=== PATIENT | male | born 1995 | race Caucasian/White ===

== ENCOUNTER 2020-02-08 10:32 | Emergency (ER) | payer SELFPAY ==
[2020-02-08] MEDS ORDERED: Sodium Chloride 0.9% 1000 ML 1,000 ML IV STA (10:56)
[2020-02-08] MEDS ORDERED: MORPHINE SULFATE 4 MG INJ IV ONE (10:56)
[2020-02-08] MEDS ORDERED: Zofran 4 MG/2 ML VIAL IV ONE (10:56)
--- NOTE | 2020-02-08 10:58 | ERPHSYRPT ---
- History of Present Illness Time Seen by Provider: 02/08/20 10:50 Historian: patient Exam Limitations: no limitations Patient Subjective Stated Complaint: Pt states "I have been fightsing something for the past 1 month, but two days ago I started to vomit and I have this knot in my abdomen and I have some severe abdominal pain as well." Triage Nursing Assessment: Pt presented alert and oriented AX 3, skin pwd PT ambulates with an upright steady gait, able to speak in clear full sentences tp in no apparent respiratory distress. pt anxious and holding abdomen. Physician History: 24 years old male presented in the ER with chief complaint of periumbilical/ upper abdominal pain. Patient report this is going off and on for almost 1 month but for the last couple of days is progressively worsening associated with multiple episodes of nonprojectile, nonbilious vomiting and no hematemesis. Patient reports it feels as if he is having a stabbing knife especially with vomiting. No fever or chills reported. No diarrhea. Denies any sick contact. Timing/Duration: day(s) (2), intermittent, worse Activities at Onset: rest Quality: sharpness, stabbing Abdominal Pain Onset Location: epigastric, periumbilical Pain Radiation: no radiation Severity of Pain-Max: severe Severity of Pain-Current: severe Modifying Factors: Improves With: movement, vomiting Associated Symptoms: fatigue, loss of appetite, nausea, No fever/chills Previous symptoms: no prior history Allergies/Adverse Reactions: No Known Drug Allergies Allergy (Verified 02/08/20 10:42) Hx Tetanus, Diphtheria Vaccination/Date Given: Yes Hx Influenza Vaccination/Date Given: No Hx Pneumococcal Vaccination/Date Given: No Immunizations Up to Date: Yes Travel Risk - International Travel Have you traveled outside of the country in past 3 weeks: No - Coronavirus Screening Are you exhibiting any of the following symptoms?: Yes Symptoms: Vomiting/Diarrhea Close contact with a COVID-19 positive Pt in past 14-21 Days: No - Review of Systems Constitutional: No Symptoms Eyes: No Symptoms Ears, Nose, & Throat: No Symptoms Respiratory: No Symptoms Cardiac: No Symptoms Abdominal/Gastrointestinal: Abdominal Pain, Nausea, Vomiting Genitourinary Symptoms: No Symptoms Musculoskeletal: No Symptoms Skin: No Symptoms Neurological: No Symptoms Psychological: No Symptoms Endocrine: No Symptoms Hematologic/Lymphatic: No Symptoms Immunological/Allergic: No Symptoms - Past Medical History Pertinent Past Medical History: Yes Neurological History: No Pertinent History ENT History: No Pertinent History Cardiac History: No Pertinent History Respiratory History: No Pertinent History Endocrine Medical History: No Pertinent History Musculoskeletal History: No Pertinent History GI Medical History: No Pertinent History History: No Pertinent History Psycho-Social History: No Pertinent History Male Reproductive Disorders: No Pertinent History - Past Surgical History Past Surgical History: Yes Neuro Surgical History: No Pertinent History Cardiac: No Pertinent History Respiratory: No Pertinent History Gastrointestinal: No Pertinent History Genitourinary: No Pertinent History Musculoskeletal: Other Male Surgical History: No Pertinent History Other Surgical History: RIGHT ARM LEFT ANKLE SURGERY - Social History Smoking Status: Current some day smoker How long have you smoked: years Exposure to second hand smoke: Yes Drug Use: narcotics, other Patient Lives Alone: No - Nursing Vital Signs Nursing Vital Signs: Initial Vital Signs Temperature 98.5 F 02/08/20 10:37 Pulse Rate 88 02/08/20 10:37 Respiratory Rate 22 02/08/20 10:37 Blood Pressure 123/66 02/08/20 10:37 O2 Sat by Pulse Oximetry 100 02/08/20 10:37 Pain Scale Pain Intensity 2 - Physical Exam General Appearance: no apparent distress, alert, anxiety Eye Exam: eyes nml inspection Ears, Nose, Throat Exam: normal ENT inspection, pharynx normal Neck Exam: normal inspection, supple, full range of motion Respiratory Exam: normal breath sounds, lungs clear Cardiovascular Exam: regular rate/rhythm, normal heart sounds Gastrointestinal/Abdomen Exam: tenderness, guarding (Periumbilical area), No rebound Back Exam: normal inspection Extremity Exam: normal inspection Neurologic Exam: alert, oriented x 3, cooperative Skin Exam: normal color SpO2 Interpretation: normal SpO2: 100 O2 Delivery: Room Air - Course Nursing assessment & vital signs reviewed: Yes Ordered Tests: Active Orders 24 hr Category Date Time Status IV Insertion STAT Care 02/08/20 10:56 Active NPO (ED) STAT Care 02/08/20 10:56 Active ABDOMEN AND PELVIS W CONTRAST [CT] Stat Exams 02/08/20 10:56 Completed CBC W DIFF Stat Lab 02/08/20 10:45 Completed CMP Stat Lab 02/08/20 10:45 Completed LIPASE Stat Lab 02/08/20 10:45 Completed UA W/RFX UR CULTURE Stat Lab 02/08/20 12:00 Completed Medication Summary Generic Name Dose Route Start Last Admin Trade Name Kamini PRN Reason Stop Dose Admin Pantoprazole Sodium 40 mg 02/08/20 13:31 Protonix 40 Mg Iv IV 02/08/20 13:32 STAT ONE Discontinued Medications Generic Name Dose Route Start Last Admin Trade Name Kamini PRN Reason Stop Dose Admin Sodium Chloride 1,000 mls @ 999 mls/hr 02/08/20 10:56 02/08/20 12:29 Sodium Chloride 0.9% 1000 Ml IV 02/08/20 11:56 Infused .Q1H1M STA Infusion Sodium Chloride Confirm 02/08/20 11:00 Sodium Chloride 0.9% 1000 Ml Administered 02/08/20 11:01 Dose 1,000 mls @ ud .ROUTE .STK-MED ONE Morphine Sulfate 4 mg 02/08/20 10:56 02/08/20 11:03 Morphine Sulfate 4 Mg Inj IV 02/08/20 10:57 4 mg STAT ONE Administration Morphine Sulfate Confirm 02/08/20 11:00 Morphine Sulfate 4 Mg Inj Administered 02/08/20 11:01 Dose 4 mg .ROUTE .STK-MED ONE Ondansetron HCl 4 mg 02/08/20 10:56 02/08/20 11:02 Zofran 4 Mg/2 Ml Vial IV 02/08/20 10:57 4 mg STAT ONE Administration Ondansetron HCl Confirm 02/08/20 10:59 Zofran 4 Mg/2 Ml Vial Administered 02/08/20 11:00 Dose 4 mg .ROUTE .STK-MED ONE Lab/Rad Data: Laboratory Result Diagrams 02/08/20 10:45 02/08/20 10:45 Laboratory Results 02/08/20 02/08/20 02/08/20 Range/Units 12:00 10:45 10:45 WBC 10.3 (4.0-10.5) K/mm3 RBC 4.76 (4.1-5.6) M/mm3 Hgb 15.0 (12.5-18.0) gm/dl Hct 44.6 (42-50) % MCV 93.7 (78-100) fl MCH 31.5 (26-32) pg MCHC 33.6 (32-36) g/dl RDW 13.2 (11.5-14.0) % Plt Count 297 (150-450) K/mm3 MPV 10.7 (7.5-11.0) fl Gran % 88.2 H (36.0-66.0) % Eos # (Auto) 0 (0-0.5) Absolute Lymphs (auto) 0.80 L (1.0-4.6) Absolute Monos (auto) 0.40 (0.0-1.3) Lymphocytes % 7.7 L (24.0-44.0) % Monocytes % 3.9 (0.0-12.0) % Eosinophils % 0.0 (0.00-5.0) % Basophils % 0.2 (0.0-0.4) % Absolute Granulocytes 9.11 H (1.4-6.9) Basophils # 0.02 (0-0.4) Sodium 141 (137-145) mmol/L Potassium 4.5 (3.5-5.1) mmol/L Chloride 104 (98-107) mmol/L Carbon Dioxide 26 (22-30) mmol/L Anion Gap 16.2 H (5-15) MEQ/L BUN 14 (9-20) mg/dL Creatinine 0.74 (0.66-1.25) mg/dL Estimated GFR > 60.0 ML/MIN Glucose 133 H (74-106) mg/dL Calcium 10.2 (8.4-10.2) mg/dL Total Bilirubin 0.60 (0.2-1.3) mg/dL AST 20 (17-59) U/L ALT 14 (0-50) U/L Alkaline Phosphatase 58 (38-126) U/L Serum Total Protein 8.5 H (6.3-8.2) g/dL Albumin 5.0 (3.5-5.0) g/dL Lipase 50 (23-300) U/L Urine Color YELLOW (YELLOW) Urine Appearance CLEAR (CLEAR) Urine pH 7.0 (5-6) Ur Specific [place] 1.050 (1.005-1.025) Urine Protein NEGATIVE (Negative) Urine Ketones NEGATIVE (NEGATIVE) Urine Blood MODERATE (0-5) Agustin/ul Urine Nitrite NEGATIVE (NEGATIVE) Urine Bilirubin NEGATIVE (NEGATIVE) Urine Urobilinogen 2 (0-1) mg/dL Ur Leukocyte Esterase NEGATIVE (NEGATIVE) Urine WBC (Auto) NONE (0-5) /HPF Urine RBC (Auto) 26-50 (0-2) /HPF U Epithel Cells (Auto) NONE (FEW) /HPF Urine Bacteria (Auto) NONE (NEGATIVE) /HPF Urine Mucus (Auto) SLIGHT (NEGATIVE) /HPF Urine Culture Reflexed NO (NO) Urine Glucose NEGATIVE (NEGATIVE) mg/dL - Progress Progress: improved, re-examined Progress Note: 02/08/20 13:32 24 years old is evaluated for upper abdominal/periumbilical pain with vomiting intermittently going on for almost 1 month. He is given IV fluid and pain medication, acute abdomen work-up including CT abdomen pelvis with contrast is negative for any acute findings. Patient probably have gastritis, given Protonix IV. We will continue with Protonix to go home. He is advised not to take ibuprofen but Tylenol as needed. Will give few pain pills to go home as well. Patient might need outpatient follow-up with GI. Recommended outpatient primary care follow-up. Reevaluation in referral. Discussed signs symptoms of worsening needing return to ER which he seems understanding. Counseled pt/family regarding: lab results, diagnosis, need for follow-up, rad results - Departure Departure Disposition: Home Clinical Impression: Upper abdominal pain Condition: Stable Critical Care Time: No Referrals: LANA HORNER [Primary Care Provider] - (1-2 days for re evaluation) Instructions: Acute Abdomen (Belly Pain) Additional Instructions: Do not take ibuprofen. Take Tylenol as needed. Follow-up with primary care for reevaluation and may need referral for gastroenterology for upper GI scope. Return to ER for any worsening. Prescriptions: Hydrocodone/APAP 5-325 Tab^^^ [Gillespie 5-325 Tablet^^^] 1 tab PO Q6HPRN PRN #10 tablet MDD 6 PRN Reason: Pain PANTOPRAZOLE 40 mg Tablet [Protonix 40MG Tablet] 40 mg PO QPM 30 Days #30 tab
[2020-02-08] MEDS ORDERED: Zofran 4 MG/2 ML VIAL ONE (10:59)
[2020-02-08] MEDS ORDERED: MORPHINE SULFATE 4 MG INJ ONE (11:00)
[2020-02-08] MEDS ORDERED: Sodium Chloride 0.9% 1000 ML 1,000 ML ONE (11:00)
[2020-02-08 11:11] LABS: Absolute Neutrophil Ct (ANC) 9.11 (1.4-6.9); BASOPHIL % 0.2 % (0.0-0.4); Basophil (Absolute #) 0.02 (0-0.4); Eosinophil (Absolute #) 0 (0-0.5); Hematocrit 44.6 % (42-50); Lymphocytes % 7.7 % (24.0-44.0); Mean Cell Volume 93.7 fl (78-100); Mean Corpuscular Hemoglobin 31.5 pg (26-32); Mean Corpuscular Hgb Concent. 33.6 g/dl (32-36); Mean Platelet Volume 10.7 fl (7.5-11.0); Monocytes % 3.9 % (0.0-12.0); Neutrophil % 88.2 % (36.0-66.0); Platelet Count 297 K/mm3 (150-450); Red Blood Count 4.76 M/mm3 (4.1-5.6); Red Cell Distribution Width 13.2 % (11.5-14.0); White Blood Count 10.3 K/mm3 (4.0-10.5)
[2020-02-08 11:41] LABS: ALKALINE PHOSPHATASE 58 U/L (38-126); ANION GAP 16.2 MEQ/L (5-15); BLOOD UREA NITROGEN 14 mg/dL (9-20); CHLORIDE 104 mmol/L (98-107); Calcium 10.2 mg/dL (8.4-10.2); Carbon Dioxide 26 mmol/L (22-30); Creatinine 1 0.74 mg/dL (0.66-1.25); Glucose 133 mg/dL (74-106); LIPASE 50 U/L (23-300); Potassium 4.5 mmol/L (3.5-5.1); SGOT/AST 20 U/L (17-59); SGPT/ALT 14 U/L (0-50); SODIUM 141 mmol/L (137-145); Total Protein 8.5 g/dL (6.3-8.2)
[2020-02-08 12:00] LABS: Appearance CLEAR (CLEAR); Bilirubin NEGATIVE (NEGATIVE); Blood MODERATE Ery/ul (0-5); Glucose NEGATIVE (NEGATIVE); Ketones NEGATIVE (NEGATIVE); Leukocyte Esterase NEGATIVE (NEGATIVE); Mucus SLIGHT /HPF (NEGATIVE); Nitrite NEGATIVE (NEGATIVE); Protein,Urine Dip NEGATIVE (Negative); RBC 26-50 /HPF (0-2); Urobilinogen 2 mg/dL (0-1)
--- NOTE | 2020-02-08 12:18 | XRAY ---
Exam: CT of the abdomen and pelvis with IV contrast from 02/08/2020. Total DLP: 313.28 mGy-cm Comparison: None. Indication: 24-year-old male with pain in mid to lower abdomen that radiates into the pelvic area, consider pancreatitis or bowel obstruction. Vomiting for one day, dehydration, trouble urinating. Technique: Post-IV contrast axial images were obtained through the abdomen and pelvis during automated injection of 80 ML's of IV Isovue 370 contrast material. No oral contrast was given. Reconstructed coronal and sagittal images were created and reviewed. Findings: The lung bases appear clear. The liver is of unremarkable size and uniform attenuation. No focal hepatic mass or biliary duct distention is seen. The gallbladder reveals no dense calcifications within it. It appears of normal size and is located superficially just above the umbilicus in the midline. The spleen appears of normal size and reveals no focal mass. The patient is noted to be quite thin and muscular with crowding of the soft tissue and muscle structures. I see no obvious abnormality of the pancreas. The adrenal glands appear of normal size and configuration. The kidneys appear of normal size and shape. No solid renal mass or hydronephrosis is seen. No definite renal calculi are seen on these post IV contrast images. The abdominal aorta is of normal diameter. No abdominal aortic aneurysm or abnormal retroperitoneal lymphadenopathy is seen. There is no free to peritoneal air. The anterior abdominal wall appears intact. No definite findings to suggest acute appendicitis are seen. The bowel does not appear distended (i.e. non-obstructed). No obvious bowel wall thickening is seen. No pelvic masses or enlarged pelvic lymph nodes are seen. There is no free intraperitoneal fluid. The seminal vesicles and prostate gland appear unremarkable. The skeleton reveals an exaggerated lower lumbar lordosis at the lumbosacral junction. There appears to be about 3 mm anterolisthesis of L5 over S1 with bilateral spondylolysis of L5. Presumably, this is an old finding. Mild posterior vertebral endplate spurring is seen at L4-L5. I also note mild broad-based posterior disc bulging at L4-L5 crossing the midline. See axial image #353 of series 3 and sagittals images #87 and #88. Impression: 1. I see no definite acute intra-abdominal or pelvic abnormality. Assessment of the soft tissue structures is mildly limited due to significant paucity of intraperitoneal fat. 2. 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 3. Mild broad-based posterior L4-L5 disc bulge crossing the midline.
[2020-02-08] MEDS ORDERED: PROTONIX 40 MG IV IV ONE ×2 (13:31→13:35)
[2020-02-08 13:35] VITALS: O2SAT 100
[2020-02-08 13:42] VITALS: BP 132/78; PULSE 90
== END 2020-02-08 13:53 | disposition home or self-care (01) ==
LOC: ED 10:32
DX: R10.10 Upper abdominal pain, unspecified (principal); R11.2 Nausea with vomiting, unspecified; Z72.0 Tobacco use
CPT/HCPCS: 36000; 36415; 74177; 80053; 81001; 83690; 85025; 96360; 96374; 96375; 99284; J2270; J2405

== ENCOUNTER 2020-03-18 14:43 | Emergency (ER) | payer MEDICAID ==
[2020-03-18] MEDS ORDERED: Sodium Chloride 0.9% 1000 ML 1,000 ML IV STA (14:54)
[2020-03-18] MEDS ORDERED: Zofran 4 MG/2 ML VIAL IV ONE (14:54)
[2020-03-18] MEDS ORDERED: Hydromorphone 1 mg/ml Ampule IV ONE (14:54)
[2020-03-18] MEDS ORDERED: PROTONIX 40 MG IV IV ONE ×2 (14:54→15:28)
[2020-03-18] MEDS ORDERED: Zofran 4 MG/2 ML VIAL ONE (15:28)
[2020-03-18] MEDS ORDERED: Sodium Chloride 0.9% 1000 ML 1,000 ML ONE (15:28)
[2020-03-18] MEDS ORDERED: Hydromorphone 1 mg/ml Ampule ONE (15:28)
[2020-03-18 15:32] LABS: Absolute Neutrophil Ct (ANC) 9.18 (1.4-6.9); BASOPHIL % 0.2 % (0.0-0.4); Basophil (Absolute #) 0.02 (0-0.4); Eosinophil % 0.9 % (0.00-5.0); Hematocrit 44.4 % (42-50); Hemoglobin 14.5 gm/dl (12.5-18.0); Lymphocyte (Absolute #) 1.12 (1.0-4.6); Lymphocytes % 10.4 % (24.0-44.0); Mean Cell Volume 94.1 fl (78-100); Mean Corpuscular Hemoglobin 30.7 pg (26-32); Mean Corpuscular Hgb Concent. 32.7 g/dl (32-36); Monocyte (Absolute #) 0.33 (0.0-1.3); Monocytes % 3.1 % (0.0-12.0); Neutrophil % 85.4 % (36.0-66.0); Platelet Count 227 K/mm3 (150-450); Red Blood Count 4.72 M/mm3 (4.1-5.6); Red Cell Distribution Width 12.9 % (11.5-14.0); White Blood Count 10.8 K/mm3 (4.0-10.5)
[2020-03-18 15:36] LABS: INR 1.22 (0.8-3.0); PROTIME 13.8 SECONDS (8.83-12.87)
[2020-03-18 16:00] LABS: ALBUMIN 4.7 g/dL (3.5-5.0); ALKALINE PHOSPHATASE 64 U/L (38-126); AMYLASE 93 U/L (30-110); ANION GAP 12.2 MEQ/L (5-15); BLOOD UREA NITROGEN 11 mg/dL (9-20); CHLORIDE 106 mmol/L (98-107); Calcium 9.9 mg/dL (8.4-10.2); Carbon Dioxide 27 mmol/L (22-30); Creatinine 1 0.72 mg/dL (0.66-1.25); Glucose 122 mg/dL (74-106); LIPASE 43 U/L (23-300); SGOT/AST 22 U/L (17-59); SGPT/ALT 14 U/L (0-50); SODIUM 142 mmol/L (137-145); Total Protein 8.1 g/dL (6.3-8.2)
[2020-03-18 16:50] LABS: Appearance CLEAR (CLEAR); Bilirubin NEGATIVE (NEGATIVE); Blood MODERATE Ery/ul (0-5); Glucose NEGATIVE (NEGATIVE); Ketones TRACE (NEGATIVE); Leukocyte Esterase NEGATIVE (NEGATIVE); Mucus SLIGHT /HPF (NEGATIVE); Nitrite NEGATIVE (NEGATIVE); Protein,Urine Dip NEGATIVE (Negative); RBC 26-50 /HPF (0-2); Specific Gravity 1.055 (1.005-1.025); Urobilinogen NEGATIVE mg/dL (0-1); WBC 0-2 /HPF (0-5)
[2020-03-18 17:09] LABS: Amphetamine,Urine NEGATIVE (NEGATIVE); Barbiturate,Urine NEGATIVE (NEGATIVE); Benzodiazepine,Urine NEGATIVE (NEGATIVE); Cocaine,Urine NEGATIVE (NEGATIVE); Methadone,Urine NEGATIVE (NEGATIVE); Opiate,Urine POSITIVE (NEGATIVE); PCP,Urine NEGATIVE (NEGATIVE); THC,Urine NEGATIVE (NEGATIVE)
[2020-03-18 17:23] VITALS: BP 121/58; PULSE 57; O2SAT 98
--- NOTE | 2020-03-18 17:43 | ERPHSYRPT ---
- History of Present Illness Time Seen by Provider: 03/18/20 14:55 Patient Subjective Stated Complaint: PT states "I have eaten allot of meat in the last week. About 4 am this morning I started to have abdominal pain and it is getting worse and worse." Triage Nursing Assessment: Pt presented alert and orieted X 3, skin pwd Pt ambulates with an upright steady gait, able to speak in clear full sentences. PT holding abdomen, anxious and grunting. Physician History: Is a 24-year-old male who presents with a complaint of upper abdominal pain. He states that he is been eating a lot of steak recently and awoke at 4 AM with abdominal cramping in the epigastric area has had nausea but no vomiting no diarrhea his bowel movements are okay he has had some chills and sweats but no fever he has had no testicular pain and no back pain. Timing/Duration: today Activities at Onset: none Quality: cramping Abdominal Pain Onset Location: epigastric Pain Radiation: no radiation Severity of Pain-Max: moderate Severity of Pain-Current: none Modifying Factors: Improves With: nothing Associated Symptoms: nausea, No diarrhea, No vomiting Previous symptoms: same symptoms as today Allergies/Adverse Reactions: No Known Drug Allergies Allergy (Verified 02/08/20 10:42) Hx Tetanus, Diphtheria Vaccination/Date Given: Yes Hx Influenza Vaccination/Date Given: No Hx Pneumococcal Vaccination/Date Given: No Immunizations Up to Date: Yes Travel Risk - International Travel Have you traveled outside of the country in past 3 weeks: No - Coronavirus Screening Are you exhibiting any of the following symptoms?: No Close contact with a COVID-19 positive Pt in past 14-21 Days: No - Review of Systems Constitutional: Chills, No Fever Eyes: No Symptoms Ears, Nose, & Throat: No Symptoms Respiratory: No Cough, No Dyspnea Cardiac: No Chest Pain, No Edema, No Syncope Abdominal/Gastrointestinal: Abdominal Pain, Nausea, No Vomiting, No Diarrhea Genitourinary Symptoms: No Dysuria Musculoskeletal: No Back Pain, No Neck Pain Skin: No Rash Neurological: No Dizziness, No Focal Weakness, No Sensory Changes Psychological: No Symptoms Endocrine: No Symptoms All Other Systems: Reviewed and Negative - Past Medical History Pertinent Past Medical History: Yes Neurological History: No Pertinent History ENT History: No Pertinent History Cardiac History: No Pertinent History Respiratory History: No Pertinent History Endocrine Medical History: No Pertinent History Musculoskeletal History: No Pertinent History GI Medical History: No Pertinent History History: No Pertinent History Psycho-Social History: No Pertinent History Male Reproductive Disorders: No Pertinent History - Past Surgical History Past Surgical History: Yes Neuro Surgical History: No Pertinent History Cardiac: No Pertinent History Respiratory: No Pertinent History Gastrointestinal: No Pertinent History Genitourinary: No Pertinent History Musculoskeletal: Other Male Surgical History: No Pertinent History Other Surgical History: RIGHT ARM LEFT ANKLE SURGERY - Social History Smoking Status: Current some day smoker How long have you smoked: years Exposure to second hand smoke: Yes Drug Use: narcotics, other Patient Lives Alone: No - Nursing Vital Signs Nursing Vital Signs: Initial Vital Signs Temperature 97.4 F 03/18/20 14:48 Pulse Rate 62 03/18/20 14:48 Respiratory Rate 24 03/18/20 14:48 Blood Pressure 135/90 03/18/20 14:48 O2 Sat by Pulse Oximetry 100 03/18/20 14:48 Pain Scale Pain Intensity 4 - Physical Exam General Appearance: moderate distress, alert Eye Exam: PERRL/EOMI, eyes nml inspection Ears, Nose, Throat Exam: normal ENT inspection, pharynx normal, moist mucous membranes Neck Exam: normal inspection, non-tender, supple, full range of motion Respiratory Exam: normal breath sounds, lungs clear, No respiratory distress Cardiovascular Exam: regular rate/rhythm, normal heart sounds Gastrointestinal/Abdomen Exam: normal bowel sounds, tenderness (Epigastrium), No mass Back Exam: normal inspection, normal range of motion, No CVA tenderness, No vertebral tenderness Extremity Exam: normal inspection, normal range of motion, pelvis stable Neurologic Exam: alert, oriented x 3, cooperative, normal mood/affect, nml cerebellar function, sensation nml, No motor deficits Skin Exam: normal color, warm, dry SpO2: 98 - Course Nursing assessment & vital signs reviewed: Yes - CT Exams Abdomen/Pelvis CT Interpretation: Other (CT scan of the abdomen and pelvis indicates to my reading no change from previous film done in January of this year no acute intra- abdominal pathology.) Ordered Tests: Active Orders 24 hr Category Date Time Status IV Insertion STAT Care 03/18/20 14:54 Active ABDOMEN AND PELVIS W CONTRAST [CT] Stat Exams 03/18/20 14:55 Taken CHEST 1 VIEW (PORTABLE) Stat Exams 03/18/20 14:54 Taken AMYLASE Stat Lab 03/18/20 15:00 Completed CBC W DIFF Stat Lab 03/18/20 15:00 Completed CMP Stat Lab 03/18/20 15:00 Completed CULTURE,URINE Stat Lab 03/18/20 16:50 Received LIPASE Stat Lab 03/18/20 15:00 Completed Lactic Acid Stat Lab 03/18/20 14:54 Completed Lactic Acid Stat Lab 03/18/20 17:23 Received PROTIME WITH INR Stat Lab 03/18/20 15:00 Completed UA W/RFX UR CULTURE Stat Lab 03/18/20 16:50 Completed Urine Triage Profile Stat Lab 03/18/20 16:50 Completed Medication Summary Discontinued Medications Generic Name Dose Route Start Last Admin Trade Name Freq PRN Reason Stop Dose Admin Hydromorphone HCl 1 mg 03/18/20 14:54 03/18/20 15:37 Hydromorphone 1 Mg/Ml Ampule IV 03/18/20 14:55 1 mg STAT ONE Administration Hydromorphone HCl Confirm 03/18/20 15:28 Hydromorphone 1 Mg/Ml Ampule Administered 03/18/20 15:29 Dose 1 mg .ROUTE .STK-MED ONE Sodium Chloride 1,000 mls @ 999 mls/hr 03/18/20 14:54 03/18/20 17:20 Sodium Chloride 0.9% 1000 Ml IV 03/18/20 15:54 Infused .Q1H1M STA Infusion Sodium Chloride Confirm 03/18/20 15:28 Sodium Chloride 0.9% 1000 Ml Administered 03/18/20 15:29 Dose 1,000 mls @ ud .ROUTE .STK-MED ONE Ondansetron HCl 4 mg 03/18/20 14:54 03/18/20 15:30 Zofran 4 Mg/2 Ml Vial IV 03/18/20 14:55 4 mg STAT ONE Administration Ondansetron HCl Confirm 03/18/20 15:28 Zofran 4 Mg/2 Ml Vial Administered 03/18/20 15:29 Dose 4 mg .ROUTE .STK-MED ONE Pantoprazole Sodium 40 mg 03/18/20 14:54 03/18/20 15:37 Protonix 40 Mg Iv IV 03/18/20 14:55 40 mg STAT ONE Administration Pantoprazole Sodium Confirm 03/18/20 15:28 Protonix 40 Mg Iv Administered 03/18/20 15:29 Dose 40 mg IV .Splurgy-MED ONE Lab/Rad Data: Laboratory Result Diagrams 03/18/20 15:00 03/18/20 15:00 Laboratory Results 03/18/20 03/18/20 03/18/20 Range/Units 16:50 16:50 15:00 WBC (4.0-10.5) K/mm3 RBC (4.1-5.6) M/mm3 Hgb (12.5-18.0) gm/dl Hct (42-50) % MCV (78-100) fl MCH (26-32) pg MCHC (32-36) g/dl RDW (11.5-14.0) % Plt Count (150-450) K/mm3 MPV (7.5-11.0) fl Gran % (36.0-66.0) % Eos # (Auto) (0-0.5) Absolute Lymphs (auto) (1.0-4.6) Absolute Monos (auto) (0.0-1.3) Lymphocytes % (24.0-44.0) % Monocytes % (0.0-12.0) % Eosinophils % (0.00-5.0) % Basophils % (0.0-0.4) % Absolute Granulocytes (1.4-6.9) Basophils # (0-0.4) PT 13.8 H (8.83-12.87) SECONDS INR 1.22 (0.8-3.0) Sodium (137-145) mmol/L Potassium (3.5-5.1) mmol/L Chloride (98-107) mmol/L Carbon Dioxide (22-30) mmol/L Anion Gap (5-15) MEQ/L BUN (9-20) mg/dL Creatinine (0.66-1.25) mg/dL Estimated GFR ML/MIN Glucose (74-106) mg/dL Lactic Acid (0.4-2.0) Calcium (8.4-10.2) mg/dL Total Bilirubin (0.2-1.3) mg/dL AST (17-59) U/L ALT (0-50) U/L Alkaline Phosphatase (38-126) U/L Serum Total Protein (6.3-8.2) g/dL Albumin (3.5-5.0) g/dL Amylase (30-110) U/L Lipase (23-300) U/L Urine Color YELLOW (YELLOW) Urine Appearance CLEAR (CLEAR) Urine pH 7.0 (5-6) Ur Specific [place] 1.055 (1.005-1.025) Urine Protein NEGATIVE (Negative) Urine Ketones TRACE (NEGATIVE) Urine Blood MODERATE (0-5) Agustin/ul Urine Nitrite NEGATIVE (NEGATIVE) Urine Bilirubin NEGATIVE (NEGATIVE) Urine Urobilinogen NEGATIVE (0-1) mg/dL Ur Leukocyte Esterase NEGATIVE (NEGATIVE) Urine WBC (Auto) 0-2 (0-5) /HPF Urine RBC (Auto) 26-50 (0-2) /HPF U Epithel Cells (Auto) NONE (FEW) /HPF Urine Bacteria (Auto) NONE (NEGATIVE) /HPF Urine Mucus (Auto) SLIGHT (NEGATIVE) /HPF Urine Culture Reflexed ORDERED SEPARATELY (NO) Urine Glucose NEGATIVE (NEGATIVE) mg/dL Urine Opiates Level POSITIVE (NEGATIVE) Ur Methadone NEGATIVE (NEGATIVE) Urine Barbiturates NEGATIVE (NEGATIVE) Ur Phencyclidine (PCP) NEGATIVE (NEGATIVE) Urine Amphetamine NEGATIVE (NEGATIVE) U Benzodiazepine Level NEGATIVE (NEGATIVE) Urine Cocaine NEGATIVE (NEGATIVE) Urine Marijuana (THC) NEGATIVE (NEGATIVE) 03/18/20 03/18/20 03/18/20 Range/Units 15:00 15:00 14:54 WBC 10.8 H (4.0-10.5) K/mm3 RBC 4.72 (4.1-5.6) M/mm3 Hgb 14.5 (12.5-18.0) gm/dl Hct 44.4 (42-50) % MCV 94.1 (78-100) fl MCH 30.7 (26-32) pg MCHC 32.7 (32-36) g/dl RDW 12.9 (11.5-14.0) % Plt Count 227 (150-450) K/mm3 MPV 11.0 (7.5-11.0) fl Gran % 85.4 H (36.0-66.0) % Eos # (Auto) 0.10 (0-0.5) Absolute Lymphs (auto) 1.12 (1.0-4.6) Absolute Monos (auto) 0.33 (0.0-1.3) Lymphocytes % 10.4 L (24.0-44.0) % Monocytes % 3.1 (0.0-12.0) % Eosinophils % 0.9 (0.00-5.0) % Basophils % 0.2 (0.0-0.4) % Absolute Granulocytes 9.18 H (1.4-6.9) Basophils # 0.02 (0-0.4) PT (8.83-12.87) SECONDS INR (0.8-3.0) Sodium 142 (137-145) mmol/L Potassium 4.0 (3.5-5.1) mmol/L Chloride 106 (98-107) mmol/L Carbon Dioxide 27 (22-30) mmol/L Anion Gap 12.2 (5-15) MEQ/L BUN 11 (9-20) mg/dL Creatinine 0.72 (0.66-1.25) mg/dL Estimated GFR > 60.0 ML/MIN Glucose 122 H (74-106) mg/dL Lactic Acid 1.9 (0.4-2.0) Calcium 9.9 (8.4-10.2) mg/dL Total Bilirubin 0.80 (0.2-1.3) mg/dL AST 22 (17-59) U/L ALT 14 (0-50) U/L Alkaline Phosphatase 64 (38-126) U/L Serum Total Protein 8.1 (6.3-8.2) g/dL Albumin 4.7 (3.5-5.0) g/dL Amylase 93 (30-110) U/L Lipase 43 (23-300) U/L Urine Color (YELLOW) Urine Appearance (CLEAR) Urine pH (5-6) Ur Specific [place] (1.005-1.025) Urine Protein (Negative) Urine Ketones (NEGATIVE) Urine Blood (0-5) Agustin/ul Urine Nitrite (NEGATIVE) Urine Bilirubin (NEGATIVE) Urine Urobilinogen (0-1) mg/dL Ur Leukocyte Esterase (NEGATIVE) Urine WBC (Auto) (0-5) /HPF Urine RBC (Auto) (0-2) /HPF U Epithel Cells (Auto) (FEW) /HPF Urine Bacteria (Auto) (NEGATIVE) /HPF Urine Mucus (Auto) (NEGATIVE) /HPF Urine Culture Reflexed (NO) Urine Glucose (NEGATIVE) mg/dL Urine Opiates Level (NEGATIVE) Ur Methadone (NEGATIVE) Urine Barbiturates (NEGATIVE) Ur Phencyclidine (PCP) (NEGATIVE) Urine Amphetamine (NEGATIVE) U Benzodiazepine Level (NEGATIVE) Urine Cocaine (NEGATIVE) Urine Marijuana (THC) (NEGATIVE) - Progress Progress: improved - Departure Departure Disposition: Home Clinical Impression: Acute abdominal pain Condition: Stable Critical Care Time: No Referrals: LANA HORNER [Primary Care Provider] - Instructions: Acute Abdomen (Belly Pain), Adult (DC) Prescriptions: PANTOPRAZOLE 40 mg Tablet [Protonix 40MG Tablet] 40 mg PO DAILY 30 Days #30 tab
--- NOTE | 2020-03-18 19:03 | XRAY ---
Indication: Chest pain. Comparison: None Portable chest hyperinflated and clear with a few incidental tiny calcified granulomas. Heart and mediastinal structures within normal limits. Bony thorax intact. Impression: Nonacute hyperinflated chest. Evidence for old granulomatous disease.
--- NOTE | 2020-03-18 19:09 | XRAY ---
Indication: Abdomen pain. Bloating. Multiple contiguous axial images obtained through the abdomen and pelvis using 80 cc of Isovue-370 contrast only. Comparison: February 08, 2020. Lung bases remain clear. Heart is not enlarged. Noncontrasted stomach and bowel loops remain nonobstructed. Appendix not seen. No free fluid/air. Remaining liver, gallbladder, pancreas, spleen, adrenal glands, kidneys, ureters, bladder, and aorta appear unremarkable. No pathologic retroperitoneal lymphadenopathy. Osseous structures intact with stable bilateral L5 spondylolysis with minimal grade 1 spondylolisthesis. No ventral or inguinal hernias. Impression: 1. Stable L5 spondylolysis with minimal grade [address] abdomen/pelvis with contrast exam is negative. Comment: Preliminary interpretation was made by [facility]. No critical discrepancy.
== END 2020-03-18 18:02 | disposition home or self-care (01) ==
LOC: ED 14:43
DX: R10.9 Unspecified abdominal pain (principal)
CPT/HCPCS: 36000; 36415; 71045; 74177; 80053; 80307; 81001; 82150; 83605; 83690; 85025; 85610; 87086; 96360; 96374; 96375; 99284; J1170; J2405

== ENCOUNTER 2020-09-28 09:43 | Emergency (ER) | payer MEDICAID ==
[2020-09-28] MEDS ORDERED: Zofran 4 MG/2 ML VIAL IV ONE (09:59)
[2020-09-28] MEDS ORDERED: SUBLIMAZE 100 MCG/2 ML IV ONE (09:59)
[2020-09-28] MEDS ORDERED: Sodium Chloride 0.9% 1000 ML 1,000 ML IV STA (09:59)
[2020-09-28] MEDS ORDERED: Zofran 4 MG/2 ML VIAL ONE (10:05)
[2020-09-28] MEDS ORDERED: SUBLIMAZE 100 MCG/2 ML ONE (10:05)
[2020-09-28] MEDS ORDERED: Sodium Chloride 0.9% 1000 ML 1,000 ML ONE (10:05)
--- NOTE | 2020-09-28 10:10 | ERPHSYRPT ---
- History of Present Illness Time Seen by Provider: 09/28/20 10:00 Historian: patient Exam Limitations: no limitations Patient Subjective Stated Complaint: Pt states "I have severe abdoinal pain." Triage Nursing Assessment: Pt presented alert and oriented X 3, skin pwd Pt ambulates with an upright steady gait, able to speak in clear full sentences. Pt moaning and rolling around on the bed. Physician History: 25-year-old marijuana smoker presents with recurrent abdominal pain epigastric in nature rated 10 of 10 complaining of some diarrhea. He has had similar episodes in the past. Which in some cases have been diagnosed as cyclical vomiting syndrome secondary to marijuana use he has had nausea and vomiting. Timing/Duration: today Activities at Onset: none Quality: cramping Abdominal Pain Onset Location: epigastric Severity of Pain-Max: moderate Severity of Pain-Current: moderate Modifying Factors: Improves With: vomiting Associated Symptoms: diarrhea, nausea, vomiting Previous symptoms: same symptoms as today Allergies/Adverse Reactions: No Known Drug Allergies Allergy (Verified 02/08/20 10:42) Home Medications: Escitalopram Oxalate 10 mg [Lexapro 10 MG] 10 mg PO DAILY 09/28/20 [History] Hx Tetanus, Diphtheria Vaccination/Date Given: Yes Hx Influenza Vaccination/Date Given: No Hx Pneumococcal Vaccination/Date Given: No Immunizations Up to Date: Yes Travel Risk - International Travel Have you traveled outside of the country in past 3 weeks: No - Coronavirus Screening Are you exhibiting any of the following symptoms?: No Close contact with a COVID-19 positive Pt in past 14-21 Days: No - Review of Systems Constitutional: No Fever, No Chills Eyes: No Symptoms Ears, Nose, & Throat: No Symptoms Respiratory: No Cough, No Dyspnea Cardiac: No Chest Pain, No Edema, No Syncope Abdominal/Gastrointestinal: Abdominal Pain, Nausea, Vomiting, Diarrhea Genitourinary Symptoms: No Dysuria Musculoskeletal: No Back Pain, No Neck Pain Skin: No Rash Neurological: No Dizziness, No Focal Weakness, No Sensory Changes Psychological: No Symptoms Endocrine: No Symptoms All Other Systems: Reviewed and Negative - Past Medical History Pertinent Past Medical History: Yes Neurological History: No Pertinent History ENT History: No Pertinent History Cardiac History: No Pertinent History Respiratory History: No Pertinent History Endocrine Medical History: No Pertinent History Musculoskeletal History: No Pertinent History GI Medical History: No Pertinent History History: No Pertinent History Psycho-Social History: No Pertinent History Male Reproductive Disorders: No Pertinent History - Past Surgical History Past Surgical History: Yes Neuro Surgical History: No Pertinent History Cardiac: No Pertinent History Respiratory: No Pertinent History Gastrointestinal: No Pertinent History Genitourinary: No Pertinent History Musculoskeletal: Other Male Surgical History: No Pertinent History Other Surgical History: RIGHT ARM LEFT ANKLE SURGERY - Social History Smoking Status: Current some day smoker How long have you smoked: years Exposure to second hand smoke: Yes Drug Use: marijuana, narcotics, other Patient Lives Alone: No - Nursing Vital Signs Nursing Vital Signs: Initial Vital Signs Temperature 97.9 F 09/28/20 09:57 Pulse Rate 49 L 09/28/20 09:57 Respiratory Rate 20 09/28/20 09:57 Blood Pressure 143/72 09/28/20 09:57 O2 Sat by Pulse Oximetry 97 09/28/20 09:57 Pain Scale Pain Intensity 4 - Physical Exam General Appearance: no apparent distress, alert Eye Exam: PERRL/EOMI, eyes nml inspection Ears, Nose, Throat Exam: normal ENT inspection, pharynx normal, moist mucous membranes Neck Exam: normal inspection, non-tender, supple, full range of motion Respiratory Exam: normal breath sounds, lungs clear, No respiratory distress Cardiovascular Exam: regular rate/rhythm, normal heart sounds Gastrointestinal/Abdomen Exam: tenderness, guarding (Tenderness and guarding in the epigastrium), No mass Back Exam: normal inspection, normal range of motion, No CVA tenderness, No vertebral tenderness Extremity Exam: normal inspection, normal range of motion, pelvis stable Neurologic Exam: alert, oriented x 3, cooperative, normal mood/affect, nml cerebellar function, sensation nml, No motor deficits Skin Exam: normal color, warm, dry SpO2: 97 - Course Nursing assessment & vital signs reviewed: Yes EKG Interpreted by Me: RATE ([id number]), Sinus [place], NORMAL AXIS, NORMAL INTERVALS, NORMAL QRS, NORMAL ST-T - Radiology Exams Chest X-ray Interpretation: Negative - CT Exams Abdomen/Pelvis CT Interpretation: Negative Ordered Tests: Active Orders 24 hr Category Date Time Status EKG-ER Only STAT Care 09/28/20 09:59 Active IV Insertion STAT Care 09/28/20 09:59 Active NPO (ED) STAT Care 09/28/20 09:59 Active ABDOMEN AND PELVIS W CONTRAST [CT] Stat Exams 09/28/20 10:00 Completed CHEST 1 VIEW (PORTABLE) Stat Exams 09/28/20 10:00 Completed AMYLASE Stat Lab 09/28/20 10:30 Completed CBC W DIFF Stat Lab 09/28/20 10:30 Completed CMP Stat Lab 09/28/20 10:30 Completed LIPASE Stat Lab 09/28/20 10:30 Completed Lactic Acid Stat Lab 09/28/20 09:59 Completed TROPONIN Q3H Lab 09/28/20 10:30 Completed TROPONIN Q3H Lab 09/28/20 13:00 Ordered TROPONIN Q3H Lab 09/28/20 16:00 Ordered TROPONIN Q3H Lab 09/28/20 19:00 Ordered TROPONIN Q3H Lab 09/28/20 22:00 Ordered UA W/RFX UR CULTURE Stat Lab 09/28/20 10:14 Completed Medication Summary Discontinued Medications Generic Name Dose Route Start Last Admin Trade Name Freq PRN Reason Stop Dose Admin Fentanyl Citrate 50 mcg 09/28/20 09:59 09/28/20 10:06 Sublimaze 100 Mcg/2 Ml IV 09/28/20 10:00 50 mcg STAT ONE Administration Fentanyl Citrate Confirm 09/28/20 10:05 Sublimaze 100 Mcg/2 Ml Administered 09/28/20 10:06 Dose 100 mcg .ROUTE .STK-MED ONE Sodium Chloride 1,000 mls @ 999 mls/hr 09/28/20 09:59 09/28/20 11:20 Sodium Chloride 0.9% 1000 Ml IV 09/28/20 10:59 Infused .Q1H1M STA Infusion Sodium Chloride Confirm 09/28/20 10:05 Sodium Chloride 0.9% 1000 Ml Administered 09/28/20 10:06 Dose 1,000 mls @ ud .ROUTE .STK-MED ONE Ondansetron HCl 4 mg 09/28/20 09:59 09/28/20 10:07 Zofran 4 Mg/2 Ml Vial IV 09/28/20 10:00 4 mg STAT ONE Administration Ondansetron HCl Confirm 09/28/20 10:05 Zofran 4 Mg/2 Ml Vial Administered 09/28/20 10:06 Dose 4 mg .ROUTE .STK-MED ONE Lab/Rad Data: Laboratory Result Diagrams 09/28/20 10:30 09/28/20 10:30 Laboratory Results 09/28/20 09/28/20 09/28/20 Range/Units 10:30 10:30 10:30 WBC 10.1 (4.0-10.5) K/mm3 RBC 4.66 (4.1-5.6) M/mm3 Hgb 14.6 (12.5-18.0) gm/dl Hct 44.9 (42-50) % MCV 96.4 (78-100) fl MCH 31.3 (26-32) pg MCHC 32.5 (32-36) g/dl RDW 13.4 (11.5-14.0) % Plt Count 245 (150-450) K/mm3 MPV 10.7 (7.5-11.0) fl Gran % 77.3 H (36.0-66.0) % Eos # (Auto) 0.12 (0-0.5) Absolute Lymphs (auto) 1.56 (1.0-4.6) Absolute Monos (auto) 0.57 (0.0-1.3) Lymphocytes % 15.5 L (24.0-44.0) % Monocytes % 5.7 (0.0-12.0) % Eosinophils % 1.2 (0.00-5.0) % Basophils % 0.3 (0.0-0.4) % Absolute Granulocytes 7.78 H (1.4-6.9) Basophils # 0.03 (0-0.4) Sodium 138 (137-145) mmol/L Potassium 3.8 (3.5-5.1) mmol/L Chloride 101 (98-107) mmol/L Carbon Dioxide 27 (22-30) mmol/L Anion Gap 13.8 (5-15) MEQ/L BUN 13 (9-20) mg/dL Creatinine 0.70 (0.66-1.25) mg/dL Estimated GFR > 60.0 ML/MIN Glucose 110 H (74-106) mg/dL Lactic Acid (0.4-2.0) Calcium 9.9 (8.4-10.2) mg/dL Total Bilirubin 0.70 (0.2-1.3) mg/dL AST 20 (17-59) U/L ALT 12 (0-50) U/L Alkaline Phosphatase 54 (38-126) U/L Troponin I < 0.012 (0.000-0.034) ng/mL Serum Total Protein 7.7 (6.3-8.2) g/dL Albumin 4.7 (3.5-5.0) g/dL Amylase 75 (30-110) U/L Lipase 47 (23-300) U/L Urine Color (YELLOW) Urine Appearance (CLEAR) Urine pH (5-6) Ur Specific [place] (1.005-1.025) Urine Protein (Negative) Urine Ketones (NEGATIVE) Urine Blood (0-5) Agustin/ul Urine Nitrite (NEGATIVE) Urine Bilirubin (NEGATIVE) Urine Urobilinogen (0-1) mg/dL Ur Leukocyte Esterase (NEGATIVE) Urine WBC (Auto) (0-5) /HPF Urine RBC (Auto) (0-2) /HPF U Epithel Cells (Auto) (FEW) /HPF Urine Bacteria (Auto) (NEGATIVE) /HPF Amorphous Crystals (NEGATIVE) /HPF Urine Mucus (Auto) (NEGATIVE) /HPF Urine Culture Reflexed (NO) Urine Glucose (NEGATIVE) mg/dL 09/28/20 09/28/20 Range/Units 10:14 09:59 WBC (4.0-10.5) K/mm3 RBC (4.1-5.6) M/mm3 Hgb (12.5-18.0) gm/dl Hct (42-50) % MCV (78-100) fl MCH (26-32) pg MCHC (32-36) g/dl RDW (11.5-14.0) % Plt Count (150-450) K/mm3 MPV (7.5-11.0) fl Gran % (36.0-66.0) % Eos # (Auto) (0-0.5) Absolute Lymphs (auto) (1.0-4.6) Absolute Monos (auto) (0.0-1.3) Lymphocytes % (24.0-44.0) % Monocytes % (0.0-12.0) % Eosinophils % (0.00-5.0) % Basophils % (0.0-0.4) % Absolute Granulocytes (1.4-6.9) Basophils # (0-0.4) Sodium (137-145) mmol/L Potassium (3.5-5.1) mmol/L Chloride (98-107) mmol/L Carbon Dioxide (22-30) mmol/L Anion Gap (5-15) MEQ/L BUN (9-20) mg/dL Creatinine (0.66-1.25) mg/dL Estimated GFR ML/MIN Glucose (74-106) mg/dL Lactic Acid 2.1 H (0.4-2.0) Calcium (8.4-10.2) mg/dL Total Bilirubin (0.2-1.3) mg/dL AST (17-59) U/L ALT (0-50) U/L Alkaline Phosphatase (38-126) U/L Troponin I (0.000-0.034) ng/mL Serum Total Protein (6.3-8.2) g/dL Albumin (3.5-5.0) g/dL Amylase (30-110) U/L Lipase (23-300) U/L Urine Color YELLOW (YELLOW) Urine Appearance CLOUDY (CLEAR) Urine pH 7.0 (5-6) Ur Specific [place] 1.019 (1.005-1.025) Urine Protein 30 (Negative) Urine Ketones NEGATIVE (NEGATIVE) Urine Blood NEGATIVE (0-5) Agustin/ul Urine Nitrite NEGATIVE (NEGATIVE) Urine Bilirubin NEGATIVE (NEGATIVE) Urine Urobilinogen 2 (0-1) mg/dL Ur Leukocyte Esterase NEGATIVE (NEGATIVE) Urine WBC (Auto) NONE (0-5) /HPF Urine RBC (Auto) 6-10 (0-2) /HPF U Epithel Cells (Auto) NONE (FEW) /HPF Urine Bacteria (Auto) NONE (NEGATIVE) /HPF Amorphous Crystals FEW (NEGATIVE) /HPF Urine Mucus (Auto) SLIGHT (NEGATIVE) /HPF Urine Culture Reflexed NO (NO) Urine Glucose NEGATIVE (NEGATIVE) mg/dL - Progress Progress: unchanged - Departure Departure Disposition: Home Clinical Impression: Cyclical vomiting syndrome Condition: Stable Critical Care Time: No Referrals: LAAN HORNER [Primary Care Provider] - Instructions: Acute Abdomen (Belly Pain), Adult (DC) Additional Instructions: See the lye machine operator that we have recommended or get a referral from your primary care physician. Prescriptions: Oxycodone HCl/Acetaminophen [Percocet 5-325 mg Tablet] 1 each PO Q6H PRN PRN 3 Days #12 tablet MDD 4 PRN Reason: Pain Ondansetron HCl [Zofran] 4 mg PO TID PRN #10 tablet PRN Reason: Nausea/Vomiting
[2020-09-28 10:57] LABS: Absolute Neutrophil Ct (ANC) 7.78 (1.4-6.9); BASOPHIL % 0.3 % (0.0-0.4); Basophil (Absolute #) 0.03 (0-0.4); Eosinophil % 1.2 % (0.00-5.0); Eosinophil (Absolute #) 0.12 (0-0.5); Hematocrit 44.9 % (42-50); Hemoglobin 14.6 gm/dl (12.5-18.0); Lymphocyte (Absolute #) 1.56 (1.0-4.6); Lymphocytes % 15.5 % (24.0-44.0); Mean Cell Volume 96.4 fl (78-100); Mean Corpuscular Hemoglobin 31.3 pg (26-32); Mean Corpuscular Hgb Concent. 32.5 g/dl (32-36); Mean Platelet Volume 10.7 fl (7.5-11.0); Monocyte (Absolute #) 0.57 (0.0-1.3); Monocytes % 5.7 % (0.0-12.0); Neutrophil % 77.3 % (36.0-66.0); Platelet Count 245 K/mm3 (150-450); Red Blood Count 4.66 M/mm3 (4.1-5.6); Red Cell Distribution Width 13.4 % (11.5-14.0); White Blood Count 10.1 K/mm3 (4.0-10.5)
--- NOTE | 2020-09-28 10:59 | XRAY ---
Indication: Abdomen pain. Comparison: March 18, 2020. Portable chest again demonstrates normal heart and lungs with incidental left apical calcified granuloma. Bony thorax intact. No new/acute findings.
--- NOTE | 2020-09-28 10:59 | XRAY ---
Indication: Abdomen pain, nausea, and vomiting. Multiple contiguous axial images obtained through the abdomen and pelvis using 80 cc Isovue 370 contrast. Comparison: March 18, 2020. Lung bases remain clear. Heart is not enlarged. Noncontrasted stomach and bowel loops remain nonobstructed. Appendix not seen. No free fluid/air. Remaining liver, gallbladder, pancreas, spleen, adrenal glands, kidneys, ureters, bladder, and aorta appear unremarkable. No pathologic retroperitoneal lymphadenopathy. Osseous structures intact with stable bilateral L5 spondylolysis and minimal grade 1 spondylolisthesis. Impression: 1. Stable L5 spondylolysis with minimal grade [address] abdomen/pelvis with contrast exam is again negative.
[2020-09-28 11:02] LABS: Amourphous Crystal FEW /HPF (NEGATIVE); Appearance CLOUDY (CLEAR); Bilirubin NEGATIVE (NEGATIVE); Blood NEGATIVE Ery/ul (0-5); Glucose NEGATIVE (NEGATIVE); Ketones NEGATIVE (NEGATIVE); Leukocyte Esterase NEGATIVE (NEGATIVE); Mucus SLIGHT /HPF (NEGATIVE); Nitrite NEGATIVE (NEGATIVE); Protein,Urine Dip 30 (Negative); Specific Gravity 1.019 (1.005-1.025); Urobilinogen 2 mg/dL (0-1)
[2020-09-28 11:09] LABS: ALBUMIN 4.7 g/dL (3.5-5.0); ALKALINE PHOSPHATASE 54 U/L (38-126); AMYLASE 75 U/L (30-110); ANION GAP 13.8 MEQ/L (5-15); BLOOD UREA NITROGEN 13 mg/dL (9-20); CHLORIDE 101 mmol/L (98-107); Calcium 9.9 mg/dL (8.4-10.2); Carbon Dioxide 27 mmol/L (22-30); EST GLOMERULAR FILTRATION RATE > 60.0 ML/MIN; Glucose 110 mg/dL (74-106); LIPASE 47 U/L (23-300); Potassium 3.8 mmol/L (3.5-5.1); SGOT/AST 20 U/L (17-59); SGPT/ALT 12 U/L (0-50); SODIUM 138 mmol/L (137-145); Total Protein 7.7 g/dL (6.3-8.2)
[2020-09-28 11:26] VITALS: BP 138/70; PULSE 92
[2020-09-28 11:34] VITALS: O2SAT 97
== END 2020-09-28 11:43 | disposition home or self-care (01) ==
LOC: ED 09:43
DX: R10.13 Epigastric pain (principal); R11.15 Cyclical vomiting syndrome unrelated to migraine; R19.7 Diarrhea, unspecified; R11.2 Nausea with vomiting, unspecified; F17.200 Nicotine dependence, unspecified, uncomplicated; F19.90 Other psychoactive substance use, unspecified, uncomplicated
CPT/HCPCS: 36000; 36415; 71045; 74177; 80053; 81001; 82150; 83605; 83690; 84484; 85025; 93005; 96360; 96374; 96375; 99284; J2405; J3010